=== PATIENT | female | born 1950 | race Caucasian/White ===

== ENCOUNTER 2016-10-19 19:19 | Emergency (ER) | payer OTHER ==
[~2016-10-19] VITALS: Ht 157.5 cm; Wt 72.9 kg
[2016-10-19] MEDS ORDERED: IV NORMAL SALINE 1,000ML 1,000 ML IV SCH (19:56)
[2016-10-19] MEDS ORDERED: IOHEXOL 300 MG/ML 75 ML VIAL. IV ONE (20:15)
[2016-10-19] MEDS ORDERED: CONTRAST GIVEN MC PRN (20:15)
[2016-10-19 20:36] LABS: BILIRUBIN,URINE NEG (NEG); CLARITY,URINE HAZY; COLOR,URINE YELLOW; GLUCOSE,URINE NEG (NEG); NITRITE,URINE NEG (NEG); UROBILINOGEN,URINE 1 mg/dL (0.2 mg/dL)
[2016-10-19 20:38] LABS: BACTERIA,URINE 0 /HPF (0-FEW); HYALINE CASTS, URINE FEW /HPF; SQUAMOUS EPITHELIAL CELL,UR MOD /LPF
[2016-10-19 20:46] LABS: BASO # 0.1 x10^3/uL (0.0-0.2); BASO % 1 % (0-3); EOS # 0.1 x10^3/uL (0.0-0.7); EOS % 2 % (0-3); HEMATOCRIT 35.6 % (36.0-47.0); HEMOGLOBIN 12.3 g/dL (12.0-15.5); LYMPH % 25 % (24-48); MEAN CORPUSCULAR HEMOGLOBIN 30 pg (25-35); MEAN CORPUSCULAR HGB CONC 35 g/dL (31-37); MEAN CORPUSCULAR VOLUME 88 fL (79-100); MONO # 0.6 x10^3/uL (0.0-1.1); MONO % 8 % (0-9); NEUT # 5.2 x10^3uL (1.8-7.7); NEUT % 65 % (31-73); PLATELET COUNT 241 x10^3/uL (140-400); RED BLOOD COUNT 4.05 x10^6/uL (3.50-5.40)
[2016-10-19 21:01] LABS: ALBUMIN 4.1 g/dL (3.4-5.0); CREATININE 1.1 mg/dL (0.6-1.0); DIRECT BILIRUBIN 0.2 mg/dL (0.0-0.2); POTASSIUM 3.7 mmol/L (3.5-5.1); TOTAL BILIRUBIN 0.7 mg/dL (0.2-1.0); TOTAL PROTEIN 7.3 g/dL (6.4-8.2)
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
--- NOTE | 2016-10-19 21:27 | RAD ---
Indication: Trauma, lawnmower rolled over on top of the patient. Axial imaging through the chest, abdomen and pelvis was performed after the administration of intravenous contrast. One or more of the following individualized dose reduction techniques were utilized for this examination: 1. Automated exposure control 2. Adjustment of the mA and/or kV according to patient size 3. Use of iterative reconstruction technique CT CHEST: There are multiple small low-density nodules within both lobes of the thyroid gland. The aorta is unremarkable. No mediastinal hematoma or great vessel injury is detected. No pericardial or pleural fluid is identified. There is no parenchymal contusion. No pneumothorax is seen. The bony structures appear intact. IMPRESSION: Unremarkable CT of the chest. CT abdomen and pelvis: There appears to be a cyst in the left lobe of the liver 2.8 cm in diameter. Gallbladder is surgically absent. No liver laceration is identified. The spleen is unremarkable. The pancreas is unremarkable. No adrenal hematoma is detected. No renal injury is seen. The aorta is unremarkable. No free fluid or hemoperitoneum is seen. The small and large bowel loops are normal caliber. The bladder is unremarkable. There is some induration of the subcutaneous fat in the left paramidline of the abdominal wall, perhaps an area of bruising. No fluid collection is seen. The bony structures appear nonacute. IMPRESSION: 1. No evidence of abdominal or pelvic visceral injury. 2. Hepatic cyst. 3. Induration of the subcutaneous fat in the left paramidline abdominal wall. Electronically signed by: Drew Tan MD (10/19/2016 9:25 PM) [facility]
[2016-10-19] MEDS ORDERED: ACETAMINOPHEN/CODEINE 300/30MG 4TABLET STARTPACK. PO ONE (22:00)
[2016-10-19 22:03] VITALS: BP 127/69
--- NOTE | 2016-10-20 02:39 | EKG ---
[address] [address] Test Date: 2016-10-19 Test Time: 20:38:31 Pat Name: JUANITO BERUMEN Department: Room: Gender: F Ms [employer] Developer: : 1950 Requested By: VERONIKA JETT Order Number: [id number] Reading MD: Measurements Intervals [place] Rate: 69 P: OK: QRS: -154 QRSD: 88 T: 126 QT: 434 QTc: 467 Interpretive Statements ATRIAL FIBRILLATION ABNORMAL RIGHT SUPERIOR AXIS DEVIATION S1,S2,S3 PATTERN CONSIDER RIGHT VENTRICULAR HYPERTROPHY QRS(T) CONTOUR ABNORMALITY CONSISTENT WITH HIGH LATERAL INFARCT AGE UNDETERMINED RI6.01 Unconfirmed report No previous ECG available for comparison
== END 2016-10-19 22:03 | disposition home or self-care (01) ==
LOC: ER 19:19
DX: S30.1XXA Contusion of abdominal wall, initial encounter (principal); E78.00 Pure hypercholesterolemia, unspecified; I10 Essential (primary) hypertension; K21.9 Gastro-esophageal reflux disease without esophagitis; V98.8XXA Other specified transport accidents, initial encounter; Y93.I9 Activity, other involving external motion; Y99.8 Other external cause status; Y92.828 Other wilderness area as the place of occurrence of the external cause
CPT/HCPCS: 36415; 71260; 74177; 80048; 80076; 81001; 82550; 85027; 87086; 93005; 96360; 99285; Q9967; J7030

== ENCOUNTER → 2016-11-07 | Outpatient (CLI) | payer OTHER ==
[2016-10-19 22:03] VITALS: BP 127/69
--- NOTE | 2016-11-07 14:55 | RAD ---
Cervical spine, 3 views, 11/07/2016: History: Neck pain There are mild scattered marginal spurs. There is extensive degenerative changes involving multiple facet joints bilaterally. There is a slight spondylolisthesis at C6-7 presumably due to facet joint arthropathy. This was also evident on the 05/14/2015 exam. No acute fracture or dislocation is identified. The prevertebral soft tissues are unremarkable. IMPRESSION: 1. Moderate multilevel degenerative change as described above. 2. No acute bony abnormality is detected.
== END | disposition home or self-care (01) ==
LOC: DXRADRC 13:27
PROVIDERS: ATTEND Nurse Practitioner Family
DX: M47.892 Other spondylosis, cervical region (principal)
CPT/HCPCS: 72040

== ENCOUNTER → 2016-12-26 | Outpatient (CLI) | payer OTHER ==
--- NOTE | 2016-12-26 16:01 | RAD ---
Lumbar spine, 3 views, 12/26/2016: History: Lumbar radiculitis, right groin pain The lumbar vertebral heights are well-maintained. There is mild disc space narrowing at multiple levels, more so at L3-4 and L4-5. There are moderate scattered marginal spurs. There are moderate degenerative changes involving the facet joints in the lower lumbar spine. No fracture or dislocation is identified. Mild aortic calcific plaquing is present. IMPRESSION: 1. Mild to moderate multilevel degenerative change. 2. No acute bony abnormality is detected.
== END | disposition home or self-care (01) ==
LOC: DXRADRC 15:44
PROVIDERS: ATTEND Nurse Practitioner Family
DX: M47.26 Other spondylosis with radiculopathy, lumbar region (principal); I70.0 Atherosclerosis of aorta
CPT/HCPCS: 72100

== ENCOUNTER → 2017-07-22 | Outpatient (CLI) | payer MEDICARE, OTHER ==
--- NOTE | 2017-07-22 12:39 | RAD ---
DATE: 07/22/2017 EXAM: MAMMO KALIN SCREENING BILATERAL HISTORY: Screening Mammogram COMPARISON: Screening mammogram 03/22/2015, 12/08/2013, 02/11/2013 This study was interpreted with the benefit of Computerized Aided Detection (CAD). The breast parenchyma shows scattered fibroglandular densities. Breast parenchyma level B. FINDINGS: Bilateral digital 2-D and 3-D tomosynthesis CC and MLO views. No suspicious mass, calcification or architectural distortion. No significant change from prior examination IMPRESSION: No mammographic evidence of malignancy. Recommend routine screening mammogram in 12 months. BI-RADS CATEGORY: 1 NEGATIVE RECOMMENDED FOLLOW-UP: 12M 12 MONTH FOLLOW-UP PQRS compliance statement: Patient information was entered into a reminder system with a target due date for the next mammogram. Mammography is a sensitive method for finding small breast cancers, but it does not detect them all and is not a substitute for careful clinical examination. A negative mammogram does not negate a clinically suspicious finding and should not result in delay in biopsying a clinically suspicious abnormality. "Our facility is accredited by the [employer] Mammography Program."
== END | disposition home or self-care (01) ==
LOC: MAMMO 08:21
PROVIDERS: ATTEND Nurse Practitioner Family
DX: Z12.31 Encounter for screening mammogram for malignant neoplasm of breast (principal); I10 Essential (primary) hypertension; E78.00 Pure hypercholesterolemia, unspecified
CPT/HCPCS: 77063; 77067

== ENCOUNTER → 2018-09-03 | Outpatient (CLI) | payer MEDICARE, OTHER ==
--- NOTE | 2018-09-03 14:30 | RAD ---
DATE: 09/03/2018 EXAM: MAMMO KALIN SCREENING BILATERAL HISTORY: Routine screening COMPARISON: 07/22/2017 This study was interpreted with the benefit of Computerized Aided Detection (CAD). Breast Density: HETERO The breast parenchyma is heterogenously dense, which could reduce sensitivity of mammography. Breast parenchyma level C. FINDINGS: 2-D and 3-D tomosynthesis imaging was performed in CC and MLO projections. No new or enlarging breast densities are seen. Minimal benign type calcifications present. No suspicious microcalcifications are evident. IMPRESSION: There is no mammographic evidence of malignancy in either breast. BI-RADS CATEGORY: 1 NEGATIVE RECOMMENDED FOLLOW-UP: 12M 12 MONTH FOLLOW-UP PQRS compliance statement: Patient information was entered into a reminder system with a target due date for the next mammogram. Mammography is a sensitive method for finding small breast cancers, but it does not detect them all and is not a substitute for careful clinical examination. A negative mammogram does not negate a clinically suspicious finding and should not result in delay in biopsying a clinically suspicious abnormality. "Our facility is accredited by the [employer] Mammography Program."
== END | disposition home or self-care (01) ==
LOC: MAMMO 11:18
PROVIDERS: ATTEND Physician Assistant Medical
DX: Z12.31 Encounter for screening mammogram for malignant neoplasm of breast (principal); N64.89 Other specified disorders of breast
CPT/HCPCS: 77063; 77067

== ENCOUNTER → 2018-09-07 | Outpatient (CLI) | payer MEDICARE, OTHER ==
--- NOTE | 2018-09-07 14:05 | RAD ---
2 views of the right knee without comparison for pain. FINDINGS: There is no fracture, dislocation, or acute osseous abnormality identified. No significant degenerative changes are seen. No radiopaque foreign bodies are evident. IMPRESSION: 1. No acute osseous abnormality of the right knee. Electronically signed by: Nicholas Mejia MD (09/07/2018 2:02 PM) [id number]
== END | disposition home or self-care (01) ==
LOC: PMG 11:45
PROVIDERS: ATTEND Physician Assistant Medical
DX: M25.561 Pain in right knee (principal)
CPT/HCPCS: 73560

== ENCOUNTER → 2020-04-30 | Outpatient (CLI) | payer MEDICARE, OTHER ==
--- NOTE | 2020-04-30 13:13 | RAD ---
DATE: 04/30/2020 8:15 AM EXAM: MAMMO KALIN SCREENING BILATERAL HISTORY: Screening COMPARISON: 07/22/2017, 09/03/2018 Bilateral CC and MLO views of the breasts were performed. Bilateral breast tomosynthesis was performed in CC and MLO projections. This study was interpreted with the benefit of Computerized Aided Detection (CAD). FINDINGS: Breast Density: HETERO The breast parenchyma Is heterogeneously dense, which could reduce sensitivity of mammography. Breast parenchyma level C No suspicious masses, microcalcifications or architectural distortion is present to suggest malignancy in either breast. The visualized axillae are unremarkable. IMPRESSION: No mammographic evidence of malignancy. BI-RADS CATEGORY: 1 NEGATIVE RECOMMENDED FOLLOW-UP: 12M 12 MONTH FOLLOW-UP Annual screening mammography is recommended, unless clinically indicated sooner based on symptoms or change in physical exam. PQRS compliance statement: Patient information was entered into a reminder system with a target due date for the next mammogram. Mammography is a sensitive method for finding small breast cancers, but it does not detect them all and is not a substitute for careful clinical examination. A negative mammogram does not negate a clinically suspicious finding and should not result in delay in biopsying a clinically suspicious abnormality. "Our facility is accredited by the [employer] Mammography Program."
== END ==
LOC: MAMMO 08:08
PROVIDERS: ATTEND Physician Assistant Medical
DX: Z12.31 Encounter for screening mammogram for malignant neoplasm of breast (principal)
CPT/HCPCS: 77063; 77067

== ENCOUNTER → 2021-08-28 | Outpatient (CLI) | payer MEDICARE, OTHER ==
--- NOTE | 2021-08-28 13:23 | RAD ---
XR CHEST 2V History: Reason: Short Of BREATH, COUGH, WEAKNESS / Spl. Instructions: / History: Comparison: None. Findings: No consolidation or pleural effusion. Normal heart size. No pneumothorax. Multilevel thoracic spondyl osis. Surgical clips right upper quadrant. Impression: 1. No acute cardiopulmonary process. Electronically signed by: Stef Reddy DO (08/28/2021 1:21 PM) [id number]
== END ==
LOC: RAD 12:11
PROVIDERS: ATTEND Nurse Practitioner
DX: R06.02 Shortness of breath (principal); M47.814 Spondylosis without myelopathy or radiculopathy, thoracic region
CPT/HCPCS: 71046